=== PATIENT | male | born 1970 | race Caucasian/White ===

== ENCOUNTER 2020-11-29 15:06 | Inpatient (IN) ==
[2020-11-29] MEDS ORDERED: 0.9 % Sodium Chloride 1,000 ML IVC ONE (16:32)
[2020-11-29 17:07] LABS: Basophils % 0.5 %
[2020-11-29 17:08] LABS: Basophils # 0.1 K/mcL (0.0-0.2); Eosinophils # 0.2 K/mcL (0.0-0.6); Eosinophils % 1.3 %; Hematocrit 28.1 % (37.5-50.1); Hemoglobin 8.2 g/dL (12.9-16.9); Immature Granulocytes % 1.4 % (0-4); Lymphocytes # 1.7 K/mcL (0.6-4.6); Lymphocytes % 11.5 %; Mean Corpuscular HGB Conc 29.2 g/dL (31.6-35.5); Mean Corpuscular Hemoglobin 23.1 pg (28.0-33.3); Mean Corpuscular Volume 79.2 fL (83.0-100.0); Mean Platelet Volume 8.7 fL (9.4-12.4); Monocytes # 1.6 K/mcL (0.0-1.3); Monocytes % 10.8 %; Neutrophils # 10.9 K/mcL (1.6-8.9); Platelet Count 537 K/mcL (140-400); Red Blood Count 3.55 M/mcL (4.19-5.50); Red Cell Distribution Width 15.8 % (11.5-14.5); Segmented Neutrophils % 74.5 %; White Blood Count 14.6 K/mcL (4.3-11.1)
[2020-11-29 17:16] LABS: Hypochromasia Present (Not Present); Platelet Estimate Increased (Normal)
[2020-11-29 17:29] LABS: Alanine Aminotransferase 12 Units/L (7-52); Albumin 2.9 g/dL (3.5-5.7); Albumin/Globulin Ratio 0.6 (1.1-2.2); Alkaline Phosphatase 84 Units/L (34-104); Aspartate Amino Transferase 12 Units/L (13-39); BUN/Creatinine Ratio 15 (6-26); Bilirubin,Total 0.4 mg/dL (0.3-1.0); Blood Urea Nitrogen 11 mg/dL (6-20); Calcium 8.8 mg/dL (8.6-10.3); Carbon Dioxide 27 mEq/L (23-29); Chloride 100 mEq/L (98-107); Globulin 4.5 g/dL (2.4-3.5); Glucose 143 mg/dL (70-105); Osmolality,Calculated 286 (280-300); Potassium 3.9 mEq/L (3.5-5.1); Sodium 137 mEq/L (136-145); Total Protein 7.4 g/dL (6.4-8.9); eGFR For African Americans > 60 (> 60); eGFR For Non-African Americans > 60 (> 60)
[2020-11-29] MEDS ORDERED: Isovue-370 500 ML BOTTLE IVP ONE (18:13)
[2020-11-29] MEDS ORDERED: Gadolinium Contrast Agent (WT Based) IV PRN (18:13)
[2020-11-29] MEDS ORDERED: Lidocaine 4% CREAM (LMX) 5 GM TP PRN (18:22)
[2020-11-29] MEDS ORDERED: GADOBUTROL 30 MMOL/30 ML VIAL IVP ONE (18:54)
[2020-11-29] MEDS ORDERED: Naloxone 0.4 MG/ML INJ IVP PRN (19:00)
[2020-11-29] MEDS: polyethylene glycoL 3350 17 GM POWD.PACK PO SCH (21:17)
[2020-11-29 21:22] LABS: Iron 23 mcg/dL (65-175)
[2020-11-29 21:40] LABS: Ferritin 741 ng/mL (20-250)
[2020-11-29 21:47] LABS: Folate 3.7 ng/mL (3.0-16.0)
[2020-11-30 07:19] LABS: Mean Platelet Volume 8.9 fL (9.4-12.4); Red Cell Distribution Width 15.9 % (11.5-14.5)
[2020-11-30 07:20] LABS: Basophils # 0.1 K/mcL (0.0-0.2); Basophils % 0.6 %; Eosinophils # 0.3 K/mcL (0.0-0.6); Eosinophils % 1.8 %; Hemoglobin 7.4 g/dL (12.9-16.9); Immature Granulocytes % 1.6 % (0-4); Lymphocytes # 2.2 K/mcL (0.6-4.6); Lymphocytes % 14.7 %; Mean Corpuscular HGB Conc 29.6 g/dL (31.6-35.5); Mean Corpuscular Hemoglobin 23.4 pg (28.0-33.3); Mean Corpuscular Volume 79.1 fL (83.0-100.0); Monocytes # 1.6 K/mcL (0.0-1.3); Monocytes % 10.6 %; Neutrophils # 10.5 K/mcL (1.6-8.9); Platelet Count 529 K/mcL (140-400); Red Blood Count 3.16 M/mcL (4.19-5.50); Segmented Neutrophils % 70.7 %; White Blood Count 14.8 K/mcL (4.3-11.1)
[2020-11-30 07:21] LABS: INR 1.5; Prothrombin Time 16.2 Seconds (9.4-12.1)
[2020-11-30 07:39] LABS: BUN/Creatinine Ratio 10 (6-26); Blood Urea Nitrogen 7 mg/dL (6-20); Calcium 8.4 mg/dL (8.6-10.3); Carbon Dioxide 23 mEq/L (23-29); Chloride 101 mEq/L (98-107); Glucose 151 mg/dL (70-105); Osmolality,Calculated 281 (280-300); Potassium 3.6 mEq/L (3.5-5.1); Sodium 135 mEq/L (136-145); eGFR For African Americans > 60 (> 60); eGFR For Non-African Americans > 60 (> 60)
[2020-11-30] MEDS: polyethylene glycoL 3350 17 GM POWD.PACK PO SCH (08:25)
[2020-11-30] MEDS: levoFLOXacin 750 MG/150 ML 750 MG/150 ML BAG IVPB SCH (08:25)
[2020-11-30] MEDS ORDERED: Tuberculin Skin Test (PPD) 5 UNIT/0.1 ML VIAL ID ONE (09:06)
[2020-11-30] MEDS: Melatonin 3 MG TABLET PO PRN (20:31)
[2020-12-01 01:45] LABS: Basophils # 0.1 K/mcL (0.0-0.2); Basophils % 0.5 %; Eosinophils # 0.3 K/mcL (0.0-0.6); Eosinophils % 2.2 %; Hematocrit 26.1 % (37.5-50.1); Hemoglobin 7.6 g/dL (12.9-16.9); Immature Granulocytes % 2.8 % (0-4); Lymphocytes # 2.1 K/mcL (0.6-4.6); Lymphocytes % 15.6 %; Mean Corpuscular HGB Conc 29.1 g/dL (31.6-35.5); Mean Corpuscular Hemoglobin 23.2 pg (28.0-33.3); Mean Corpuscular Volume 79.6 fL (83.0-100.0); Mean Platelet Volume 8.8 fL (9.4-12.4); Monocytes # 1.1 K/mcL (0.0-1.3); Monocytes % 8.5 %; Neutrophils # 9.3 K/mcL (1.6-8.9); Platelet Count 551 K/mcL (140-400); Red Blood Count 3.28 M/mcL (4.19-5.50); Red Cell Distribution Width 15.9 % (11.5-14.5); Segmented Neutrophils % 70.4 %; White Blood Count 13.3 K/mcL (4.3-11.1)
[2020-12-01 02:10] LABS: Alanine Aminotransferase 14 Units/L (7-52); Albumin 2.7 g/dL (3.5-5.7); Albumin/Globulin Ratio 0.6 (1.1-2.2); Alkaline Phosphatase 74 Units/L (34-104); Aspartate Amino Transferase 19 Units/L (13-39); BUN/Creatinine Ratio 14 (6-26); Bilirubin,Indirect 0.2 mg/dL (0.0-1.0); Bilirubin,Total 0.2 mg/dL (0.3-1.0); Blood Urea Nitrogen 10 mg/dL (6-20); Calcium 8.5 mg/dL (8.6-10.3); Carbon Dioxide 25 mEq/L (23-29); Chloride 102 mEq/L (98-107); Globulin 4.3 g/dL (2.4-3.5); Glucose 181 mg/dL (70-105); Osmolality,Calculated 288 (280-300); Potassium 3.6 mEq/L (3.5-5.1); Sodium 137 mEq/L (136-145); eGFR For African Americans > 60 (> 60); eGFR For Non-African Americans > 60 (> 60)
[2020-12-01] MEDS: polyethylene glycoL 3350 17 GM POWD.PACK PO SCH (09:49)
[2020-12-01] MEDS: levoFLOXacin 750 MG/150 ML 750 MG/150 ML BAG IVPB SCH (09:51)
[2020-12-01] MEDS: Iron Sucrose Complex 250 MG in 0.9 % Sodium Chloride 250 ML IVPB SCH (13:57)
[2020-12-01 22:44] LABS: Acinetobacter baumannii by PCR Not Detected (Not Detect); Candida albicans by PCR Not Detected (Not Detect); Candida glabrata by PCR Not Detected (Not Detect); Candida krusei by PCR Not Detected (Not Detect); Candida parapsilosis by PCR Not Detected (Not Detect); Candida tropicalis by PCR Not Detected (Not Detect); Enterobacter cloacae Cmplx PCR Not Detected (Not Detect); Enterobacteriaceae by PCR Not Detected (Not Detect); Enterococcus by PCR Not Detected (Not Detect); Escherichia coli by PCR Not Detected (Not Detect); Klebsiella oxytoca by PCR Not Detected (Not Detect); Klebsiella pneumoniae by PCR Not Detected (Not Detect); Proteus by PCR Not Detected (Not Detect); Pseudomonas aeruginosa by PCR Not Detected (Not Detect); Serratia marcescens by PCR Not Detected (Not Detect); Staphylococcus aureus by PCR Not Detected (Not Detect); Staphylococcus by PCR DETECTED (Not Detect); Streptococcus agalactiae(B)PCR Not Detected (Not Detect); Streptococcus by PCR Not Detected (Not Detect); Streptococcus pneumoniae PCR Not Detected (Not Detect); Streptococcus pyogenes (A) PCR Not Detected (Not Detect); mecA Methicillin-Resist Gene DETECTED (Not Detect); vanA/B Vancomycin-Resist Genes Not Detected (Not Detect)
[2020-12-01] MEDS ORDERED: *HR* LORazepam 2 MG/ML VIAL IVP ONE (23:40)
[2020-12-02] MEDS ORDERED: *HR* LORazepam 2 MG/ML VIAL IVP ONE ×2 (02:42→20:49)
[2020-12-02 04:32] LABS: Nucleated Red Blood Cells 0.2 /100 WBC (0)
[2020-12-02 04:34] LABS: Basophils # 0.1 K/mcL (0.0-0.2); Basophils % 0.5 %; Eosinophils # 0.4 K/mcL (0.0-0.6); Eosinophils % 2.7 %; Hematocrit 25.9 % (37.5-50.1); Hemoglobin 7.7 g/dL (12.9-16.9); Immature Granulocytes % 4.3 % (0-4); Lymphocytes # 1.9 K/mcL (0.6-4.6); Lymphocytes % 14.9 %; Mean Corpuscular HGB Conc 29.7 g/dL (31.6-35.5); Mean Corpuscular Hemoglobin 23.6 pg (28.0-33.3); Mean Corpuscular Volume 79.4 fL (83.0-100.0); Mean Platelet Volume 8.7 fL (9.4-12.4); Monocytes # 1.2 K/mcL (0.0-1.3); Monocytes % 9.5 %; Neutrophils # 8.8 K/mcL (1.6-8.9); Platelet Count 601 K/mcL (140-400); Red Blood Count 3.26 M/mcL (4.19-5.50); Segmented Neutrophils % 68.1 %; White Blood Count 12.9 K/mcL (4.3-11.1)
[2020-12-02 04:50] LABS: BUN/Creatinine Ratio 17 (6-26); Blood Urea Nitrogen 12 mg/dL (6-20); Calcium 8.5 mg/dL (8.6-10.3); Carbon Dioxide 24 mEq/L (23-29); Chloride 102 mEq/L (98-107); Glucose 124 mg/dL (70-105); Magnesium 1.8 mg/dL (1.6-2.6); Osmolality,Calculated 281 (280-300); Potassium 3.8 mEq/L (3.5-5.1); Sodium 135 mEq/L (136-145); eGFR For African Americans > 60 (> 60); eGFR For Non-African Americans > 60 (> 60)
[2020-12-02 04:51] LABS: Anisocytosis 1+ (Not Present); Platelet Estimate Increased (Normal); Polychromasia 1+ (Not Present)
[2020-12-02] MEDS ORDERED: 0.9 % Sodium Chloride 500 ML ONE (09:50)
[2020-12-02] MEDS ORDERED: *HR* FentaNYL (PF) 100 MCG/2 ML VIAL ONE (09:50)
[2020-12-02] MEDS ORDERED: *HR* Midazolam HCl 2 MG/2 ML VIAL ONE (09:50)
[2020-12-02 10:29] LABS: Estimated Average Glucose 171 mg/dl; Hemoglobin A1C 7.6 %
[2020-12-02] MEDS: levoFLOXacin 750 MG/150 ML 750 MG/150 ML BAG IVPB SCH (12:06)
[2020-12-02] MEDS: Vancomycin 1,500 MG/265 ML IV.SOLN IVPB SCH ×2 (12:06→20:29)
[2020-12-02] MEDS: polyethylene glycoL 3350 17 GM POWD.PACK PO SCH (12:07)
[2020-12-02] MEDS: Iron Sucrose Complex 250 MG in 0.9 % Sodium Chloride 250 ML IVPB SCH (13:43)
[2020-12-03] MEDS: Acetaminophen 325 MG TABLET PO PRN ×2 (04:09→23:49)
[2020-12-03 04:41] LABS: Basophils # 0.1 K/mcL (0.0-0.2); Basophils % 0.6 %; Eosinophils # 0.3 K/mcL (0.0-0.6); Eosinophils % 1.8 %; Hematocrit 26.2 % (37.5-50.1); Hemoglobin 7.7 g/dL (12.9-16.9); Immature Granulocytes % 4.2 % (0-4); Lymphocytes # 2.3 K/mcL (0.6-4.6); Lymphocytes % 15.2 %; Mean Corpuscular HGB Conc 29.4 g/dL (31.6-35.5); Mean Corpuscular Hemoglobin 23.4 pg (28.0-33.3); Mean Corpuscular Volume 79.6 fL (83.0-100.0); Mean Platelet Volume 8.6 fL (9.4-12.4); Monocytes # 1.7 K/mcL (0.0-1.3); Monocytes % 11.3 %; Neutrophils # 9.9 K/mcL (1.6-8.9); Nucleated Red Blood Cells 0.1 /100 WBC (0); Platelet Count 602 K/mcL (140-400); Red Blood Count 3.29 M/mcL (4.19-5.50); Red Cell Distribution Width 16.1 % (11.5-14.5); Segmented Neutrophils % 66.9 %; White Blood Count 14.9 K/mcL (4.3-11.1)
[2020-12-03 04:55] LABS: BUN/Creatinine Ratio 16 (6-26); Blood Urea Nitrogen 10 mg/dL (6-20); Calcium 8.6 mg/dL (8.6-10.3); Carbon Dioxide 23 mEq/L (23-29); Chloride 101 mEq/L (98-107); Glucose 147 mg/dL (70-105); Magnesium 1.8 mg/dL (1.6-2.6); Osmolality,Calculated 280 (280-300); Potassium 3.9 mEq/L (3.5-5.1); Sodium 134 mEq/L (136-145); eGFR For African Americans > 60 (> 60); eGFR For Non-African Americans > 60 (> 60)
[2020-12-03] MEDS: polyethylene glycoL 3350 17 GM POWD.PACK PO SCH (09:19)
[2020-12-03] MEDS: levoFLOXacin 750 MG TABLET PO SCH (09:19)
[2020-12-03] MEDS: Vancomycin 1,500 MG/265 ML IV.SOLN IVPB SCH ×2 (09:19→20:49)
[2020-12-03] MEDS: Iron Sucrose Complex 250 MG in 0.9 % Sodium Chloride 250 ML IVPB SCH (11:44)
[2020-12-03] MEDS ORDERED: Perflutren Lipid Microsphere 1.3 ML in 0.9 % Sodium Chloride 8.7 ML IVP PRN (13:06)
[2020-12-03] MEDS: Melatonin 3 MG TABLET PO PRN (21:38)
[2020-12-03] MEDS: *HR* LORazepam 0.5 MG TABLET PO PRN (21:38)
[2020-12-03] MEDS ORDERED: Vancomycin 500 MG in 0.9 % Sodium Chloride Mini Bag 100 ML IVPB ONE (22:00)
[2020-12-03 22:32] LABS: % Iron Saturation 7 % (20-55); Transferrin 137 mg/dL (203-362)
[2020-12-04 00:41] LABS: QuantiFERON Mitogen minus NIL 0.42 IU/mL
[2020-12-04 07:18] LABS: QuantiFERON NIL 0.01 IU/mL; QuantiFERON-TB Gold In-Tube INDETERMINATE (Negative)
[2020-12-04 08:19] LABS: Basophils % 0.6 %
[2020-12-04 08:20] LABS: Basophils # 0.1 K/mcL (0.0-0.2); Eosinophils # 0.3 K/mcL (0.0-0.6); Eosinophils % 1.8 %; Hematocrit 25.9 % (37.5-50.1); Hemoglobin 7.7 g/dL (12.9-16.9); Immature Granulocytes % 4.1 % (0-4); Lymphocytes % 12.6 %; Mean Corpuscular HGB Conc 29.7 g/dL (31.6-35.5); Mean Corpuscular Hemoglobin 23.9 pg (28.0-33.3); Mean Corpuscular Volume 80.4 fL (83.0-100.0); Mean Platelet Volume 8.8 fL (9.4-12.4); Monocytes # 1.5 K/mcL (0.0-1.3); Monocytes % 9.7 %; Neutrophils # 11.2 K/mcL (1.6-8.9); Platelet Count 576 K/mcL (140-400); Red Blood Count 3.22 M/mcL (4.19-5.50); Red Cell Distribution Width 16.3 % (11.5-14.5); Segmented Neutrophils % 71.2 %; White Blood Count 15.7 K/mcL (4.3-11.1)
[2020-12-04 08:36] LABS: BUN/Creatinine Ratio 17 (6-26); Blood Urea Nitrogen 11 mg/dL (6-20); Calcium 8.8 mg/dL (8.6-10.3); Carbon Dioxide 24 mEq/L (23-29); Chloride 102 mEq/L (98-107); Glucose 163 mg/dL (70-105); Magnesium 1.9 mg/dL (1.6-2.6); Osmolality,Calculated 283 (280-300); Potassium 3.8 mEq/L (3.5-5.1); Sodium 135 mEq/L (136-145); eGFR For African Americans > 60 (> 60); eGFR For Non-African Americans > 60 (> 60)
[2020-12-04 08:37] LABS: Anisocytosis 1+ (Not Present); Hypochromasia Present (Not Present)
[2020-12-04] MEDS: levoFLOXacin 750 MG TABLET PO SCH (08:51)
[2020-12-04] MEDS: polyethylene glycoL 3350 17 GM POWD.PACK PO SCH (08:51)
[2020-12-04] MEDS: Vancomycin 1,750 MG/517.5 ML IV.SOLN IVPB SCH ×2 (11:03→21:26)
[2020-12-04 12:46] LABS: Adenovirus Not Detected (Not Detect); Bordetella Pertussis Not Detected (Not Detect); Chlamydophila pneumoniae Not Detected (Not Detect); Coronavirus 229E Not Detected (Not Detect); Coronavirus HKU1 Not Detected (Not Detect); Coronavirus NL63 Not Detected (Not Detect); Coronavirus OC43 Not Detected (Not Detect); Human Metapneumovirus Not Detected (Not Detect); Human Rhinovirus/Enterovirus Not Detected (Not Detect); Influenza A Subtype 2009 H1 Not Detected (Not Detect); Influenza B Not Detected (Not Detect); Mycoplasma pneumoniae Not Detected (Not Detect); Parainfluenza Virus 1 Not Detected (Not Detect); Parainfluenza Virus 2 Not Detected (Not Detect); Parainfluenza Virus 3 Not Detected (Not Detect); Parainfluenza Virus 4 Not Detected (Not Detect); Respiratory Syncytial Virus Not Detected (Not Detect); SARS-CoV-2 Not Detected (Not Detect)
[2020-12-04] MEDS: Piperacillin/Tazobactam 3.375 GM in 0.9 % Sodium Chloride Mini Bag 100 ML IVPB SCH ×2 (17:35→23:04)
[2020-12-04 17:37] LABS: Bacteria,Urine Few per hpf (None-Few); Bilirubin,Urine Negative (Negative); Blood,Urine Trace (Negative); Clarity,Urine Turbid (Clear); Color,Urine Yellow (Yellow); Glucose,Urine (UA) 200 mg/dL (Normal); Ketones,Urine Negative (Negative); Leukocyte Esterase,Urine Negative (Negative); Mucus,Urine Few per lpf (None-Few); Nitrite,Urine Negative (Negative); Protein,Urine 30 mg/dL (Neg-Trace); RBC,Urine 0-3 per hpf (0-3); Squamous Epithelial Cell,Urine Few per hpf (None-Few)
[2020-12-04] MEDS: *HR* LORazepam 0.5 MG TABLET PO PRN (21:25)
[2020-12-04] MEDS: Melatonin 3 MG TABLET PO PRN (22:30)
[2020-12-05 05:48] LABS: Basophils % 0.6 %; Red Cell Distribution Width 16.7 % (11.5-14.5)
[2020-12-05 05:50] LABS: Basophils # 0.1 K/mcL (0.0-0.2); Eosinophils # 0.3 K/mcL (0.0-0.6); Eosinophils % 1.9 %; Hematocrit 25.4 % (37.5-50.1); Hemoglobin 7.4 g/dL (12.9-16.9); Immature Granulocytes % 2.9 % (0-4); Lymphocytes % 12.4 %; Mean Corpuscular HGB Conc 29.1 g/dL (31.6-35.5); Mean Corpuscular Hemoglobin 23.6 pg (28.0-33.3); Mean Corpuscular Volume 81.2 fL (83.0-100.0); Monocytes # 1.3 K/mcL (0.0-1.3); Monocytes % 8.4 %; Neutrophils # 11.8 K/mcL (1.6-8.9); Platelet Count 552 K/mcL (140-400); Red Blood Count 3.13 M/mcL (4.19-5.50); Segmented Neutrophils % 73.8 %
[2020-12-05 06:09] LABS: BUN/Creatinine Ratio 14 (6-26); Blood Urea Nitrogen 10 mg/dL (6-20); Calcium 8.3 mg/dL (8.6-10.3); Carbon Dioxide 24 mEq/L (23-29); Chloride 102 mEq/L (98-107); Glucose 137 mg/dL (70-105); Magnesium 1.9 mg/dL (1.6-2.6); Osmolality,Calculated 283 (280-300); Potassium 3.7 mEq/L (3.5-5.1); Sodium 136 mEq/L (136-145); eGFR For African Americans > 60 (> 60); eGFR For Non-African Americans > 60 (> 60)
[2020-12-05 06:12] LABS: Hypochromasia Present (Not Present); Polychromasia 1+ (Not Present)
[2020-12-05] MEDS: Piperacillin/Tazobactam 3.375 GM in 0.9 % Sodium Chloride Mini Bag 100 ML IVPB SCH ×3 (08:47→23:06)
[2020-12-05] MEDS: polyethylene glycoL 3350 17 GM POWD.PACK PO SCH (09:29)
[2020-12-05] MEDS: Vancomycin 1,750 MG/517.5 ML IV.SOLN IVPB SCH (10:42)
[2020-12-05] MEDS: Vancomycin 2,000 MG/520 ML IV.SOLN IVPB SCH ×2 (11:23→23:06)
[2020-12-05] MEDS: Melatonin 3 MG TABLET PO PRN (20:32)
[2020-12-05] MEDS: Acetaminophen 325 MG TABLET PO PRN (20:32)
[2020-12-05] MEDS: *HR* LORazepam 0.5 MG TABLET PO PRN (20:32)
[2020-12-06 04:46] LABS: Basophils % 0.6 %; Hemoglobin 7.4 g/dL (12.9-16.9); Mean Platelet Volume 8.8 fL (9.4-12.4)
[2020-12-06 04:48] LABS: Basophils # 0.1 K/mcL (0.0-0.2); Eosinophils # 0.4 K/mcL (0.0-0.6); Eosinophils % 2.5 %; Hematocrit 26.1 % (37.5-50.1); Immature Granulocytes % 2.3 % (0-4); Lymphocytes # 1.8 K/mcL (0.6-4.6); Lymphocytes % 12.5 %; Mean Corpuscular HGB Conc 28.4 g/dL (31.6-35.5); Mean Corpuscular Hemoglobin 23.1 pg (28.0-33.3); Mean Corpuscular Volume 81.6 fL (83.0-100.0); Monocytes # 1.2 K/mcL (0.0-1.3); Monocytes % 8.3 %; Neutrophils # 10.5 K/mcL (1.6-8.9); Platelet Count 579 K/mcL (140-400); Red Cell Distribution Width 16.6 % (11.5-14.5); Segmented Neutrophils % 73.8 %; White Blood Count 14.2 K/mcL (4.3-11.1)
[2020-12-06 04:57] LABS: BUN/Creatinine Ratio 14 (6-26); Blood Urea Nitrogen 10 mg/dL (6-20); Calcium 8.6 mg/dL (8.6-10.3); Carbon Dioxide 24 mEq/L (23-29); Chloride 101 mEq/L (98-107); Glucose 164 mg/dL (70-105); Osmolality,Calculated 283 (280-300); Potassium 3.6 mEq/L (3.5-5.1); Sodium 135 mEq/L (136-145); eGFR For African Americans > 60 (> 60); eGFR For Non-African Americans > 60 (> 60)
[2020-12-06 06:12] LABS: Hypochromasia Present (Not Present); Microcytosis Present (Not Present)
[2020-12-06 06:13] LABS: Platelet Estimate Increased (Normal)
[2020-12-06] MEDS: Piperacillin/Tazobactam 3.375 GM in 0.9 % Sodium Chloride Mini Bag 100 ML IVPB SCH ×2 (08:07→16:29)
[2020-12-06] MEDS: polyethylene glycoL 3350 17 GM POWD.PACK PO SCH (08:08)
[2020-12-06] MEDS ORDERED: 0.9 % Sodium Chloride 500 ML IVC SCH (08:15)
[2020-12-06] MEDS: Vancomycin 2,000 MG/520 ML IV.SOLN IVPB SCH (11:16)
[2020-12-06] MEDS ORDERED: Sulfamethoxazole/Trimeth DS 1 EACH TABLET PO SCH (17:33)
[2020-12-06 19:33] VITALS: BP 111/58; PULSE 111; TEMP 100.5; O2SAT 95
== END 2020-12-06 20:45 | disposition home or self-care (01) | DRG 180 ==
LOC: EMEROOARM 15:06 → 3ANU 15:06 → SUATTDRO 19:00 → 3ANU 20:24
PROVIDERS: ADMIT Family Medicine; ATTEND Internal Medicine

== ENCOUNTER 2021-06-20 10:04 | Inpatient (IN) ==
[2021-06-20] MEDS ORDERED: 0.9 % Sodium Chloride 1,000 ML IVC ONE (10:33)
[2021-06-20] MEDS ORDERED: Naloxone 0.4 MG/ML INJ IVP PRN (10:47)
[2021-06-20] MEDS ORDERED: 0.9 % Sodium Chloride 1,000 ML IVC SCH (11:00)
[2021-06-20] MEDS ORDERED: *HR* LORazepam 1 MG TABLET PO PRN (14:14)
[2021-06-20 15:14] LABS: Basophils # 0.1 K/mcL (0.0-0.2); Basophils % 0.3 %; Hemoglobin 8.7 g/dL (12.9-16.9); Immature Granulocytes % 1.5 % (0-4); Lymphocytes # 2.1 K/mcL (0.6-4.6); Lymphocytes % 11.7 %; Mean Corpuscular HGB Conc 33.5 g/dL (31.6-35.5); Mean Corpuscular Hemoglobin 32.8 pg (28.0-33.3); Mean Platelet Volume 9.1 fL (9.4-12.4); Monocytes # 1.6 K/mcL (0.0-1.3); Monocytes % 9.2 %; Neutrophils # 13.5 K/mcL (1.6-8.9); Platelet Count 324 K/mcL (140-400); Red Blood Count 2.65 M/mcL (4.19-5.50); Red Cell Distribution Width 15.9 % (11.5-14.5); Segmented Neutrophils % 77.3 %; White Blood Count 17.5 K/mcL (4.3-11.1)
[2021-06-20 15:15] LABS: Mean Corpuscular Volume 98.1 fL (83.0-100.0)
[2021-06-20 15:19] LABS: Bacteria,Urine Few per hpf (None-Few); Mucus,Urine Few per lpf (None-Few); RBC,Urine 0-3 per hpf (0-3); Transitional Epi Cells,Urine Few per hpf (None-Few); WBC,Urine 0-3 per hpf (0-3)
[2021-06-20 15:36] LABS: Bilirubin,Urine Negative (Negative); Blood,Urine Negative (Negative); Clarity,Urine Clear (Clear); Color,Urine Colorless (Yellow); Glucose,Urine (UA) 300 mg/dL (Normal); Ketones,Urine Negative (Negative); Leukocyte Esterase,Urine Negative (Negative); Nitrite,Urine Negative (Negative); PH,Urine 6.5 pH Units (5.0-8.0); Protein,Urine 50 mg/dL (Neg-Trace); Squamous Epithelial Cell,Urine Few per hpf (None-Few); Urobilinogen,Urine Normal (Normal)
[2021-06-20 15:41] LABS: Protein/Creatinine Ratio,Urine 1.45 mg/mg (0.00-0.20); Sodium, Urine 53.2 mEq/L
[2021-06-20] MEDS: Nicotine 21 MG PATCH.TD24 TD SCH (16:04)
[2021-06-20] MEDS: carvediloL 6.25 MG TABLET PO SCH (16:04)
[2021-06-20 16:43] LABS: Potassium 3.8 mEq/L (3.5-5.1); Uric Acid 5.5 mg/dL (2.3-7.6)
[2021-06-20] MEDS: levETIRAcetam 250 MG TABLET PO SCH (21:50)
[2021-06-20] MEDS: *HR* OxyCODONE Immed Rel 5 MG TABLET PO PRN (21:50)
[2021-06-21 05:22] LABS: Basophils # 0.1 K/mcL (0.0-0.2); Basophils % 0.6 %; Eosinophils # 0.2 K/mcL (0.0-0.6); Hematocrit 25.2 % (37.5-50.1); Hemoglobin 8.4 g/dL (12.9-16.9); Immature Granulocytes % 1.9 % (0-4); Lymphocytes # 3.5 K/mcL (0.6-4.6); Lymphocytes % 21.4 %; Mean Corpuscular HGB Conc 33.3 g/dL (31.6-35.5); Mean Corpuscular Hemoglobin 32.9 pg (28.0-33.3); Mean Corpuscular Volume 98.8 fL (83.0-100.0); Mean Platelet Volume 9.2 fL (9.4-12.4); Monocytes % 12.5 %; Neutrophils # 10.2 K/mcL (1.6-8.9); Platelet Count 310 K/mcL (140-400); Red Blood Count 2.55 M/mcL (4.19-5.50); Segmented Neutrophils % 62.6 %; White Blood Count 16.2 K/mcL (4.3-11.1)
[2021-06-21] MEDS: *HR* Enoxaparin 40 MG/0.4 ML SYRINGE SQ SCH (05:29)
[2021-06-21] MEDS: *HR* OxyCODONE Immed Rel 5 MG TABLET PO PRN ×2 (05:29→21:30)
[2021-06-21 05:41] LABS: Calcium 8.3 mg/dL (8.6-10.3); Potassium 4.3 mEq/L (3.5-5.1)
[2021-06-21] MEDS: carvediloL 6.25 MG TABLET PO SCH ×2 (08:40→17:30)
[2021-06-21] MEDS: NIFEdipine XL (24 HR) 30 MG TAB.ER.24 PO SCH (08:40)
[2021-06-21] MEDS: dexAMETHasone 4 MG TABLET PO SCH (08:40)
[2021-06-21] MEDS: Nicotine 21 MG PATCH.TD24 TD SCH ×2 (08:41→23:06)
[2021-06-21] MEDS: levETIRAcetam 250 MG TABLET PO SCH ×2 (08:41→21:31)
[2021-06-21] MEDS ORDERED: 0.9 % Sodium Chloride 1,000 ML IVC SCH (10:00)
[2021-06-21] MEDS: traZODone 50 MG TABLET PO PRN (21:31)
[2021-06-22 02:32] LABS: Immature Granulocytes % 2.6 % (0-4); Mean Corpuscular Hemoglobin 32.4 pg (28.0-33.3); Red Blood Count 2.47 M/mcL (4.19-5.50)
[2021-06-22 02:33] LABS: Basophils # 0.1 K/mcL (0.0-0.2); Basophils % 0.4 %; Eosinophils # 0.1 K/mcL (0.0-0.6); Eosinophils % 0.5 %; Hematocrit 24.8 % (37.5-50.1); Immature Platelets 3.2 % (1.1-6.1); Lymphocytes # 1.9 K/mcL (0.6-4.6); Lymphocytes % 14.3 %; Mean Corpuscular HGB Conc 32.3 g/dL (31.6-35.5); Mean Corpuscular Volume 100.4 fL (83.0-100.0); Mean Platelet Volume 10.2 fL (9.4-12.4); Monocytes # 1.2 K/mcL (0.0-1.3); Monocytes % 9.1 %; Neutrophils # 9.7 K/mcL (1.6-8.9); Platelet Count 233 K/mcL (140-400); Segmented Neutrophils % 73.1 %; White Blood Count 13.3 K/mcL (4.3-11.1)
[2021-06-22 02:52] LABS: Calcium 8.1 mg/dL (8.6-10.3); Potassium 4.7 mEq/L (3.5-5.1)
[2021-06-22] MEDS: *HR* OxyCODONE Immed Rel 5 MG TABLET PO PRN (05:55)
[2021-06-22] MEDS: *HR* Enoxaparin 40 MG/0.4 ML SYRINGE SQ SCH (05:55)
[2021-06-22] MEDS: carvediloL 6.25 MG TABLET PO SCH ×2 (07:17→15:40)
[2021-06-22] MEDS: levETIRAcetam 250 MG TABLET PO SCH ×2 (07:17→19:44)
[2021-06-22] MEDS: Nicotine 21 MG PATCH.TD24 TD SCH ×2 (07:18→07:21)
[2021-06-22] MEDS: NIFEdipine XL (24 HR) 30 MG TAB.ER.24 PO SCH (07:18)
[2021-06-22] MEDS: 0.9 % Sodium Chloride 1,000 ML IVC SCH ×2 (09:48→19:46)
[2021-06-22 19:08] LABS: Bilirubin,Urine Negative (Negative); Blood,Urine Negative (Negative); Clarity,Urine Clear (Clear); Color,Urine Colorless (Yellow); Glucose,Urine (UA) Normal (Normal); Ketones,Urine Negative (Negative); Leukocyte Esterase,Urine Negative (Negative); Nitrite,Urine Negative (Negative); PH,Urine 6.5 pH Units (5.0-8.0); Protein,Urine 30 mg/dL (Neg-Trace); Urobilinogen,Urine Normal (Normal); WBC,Urine 0-3 per hpf (0-3)
[2021-06-22] MEDS: traZODone 50 MG TABLET PO PRN (19:45)
[2021-06-23 01:21] LABS: Basophils # 0.1 K/mcL (0.0-0.2); Basophils % 0.9 %; Eosinophils # 0.4 K/mcL (0.0-0.6); Eosinophils % 2.7 %; Hematocrit 27.4 % (37.5-50.1); Hemoglobin 8.7 g/dL (12.9-16.9); Immature Granulocytes % 2.5 % (0-4); Lymphocytes # 3.1 K/mcL (0.6-4.6); Lymphocytes % 23.2 %; Mean Corpuscular HGB Conc 31.8 g/dL (31.6-35.5); Mean Corpuscular Hemoglobin 31.8 pg (28.0-33.3); Mean Platelet Volume 8.9 fL (9.4-12.4); Monocytes # 1.6 K/mcL (0.0-1.3); Monocytes % 12.1 %; Neutrophils # 7.8 K/mcL (1.6-8.9); Platelet Count 274 K/mcL (140-400); Red Blood Count 2.74 M/mcL (4.19-5.50); Red Cell Distribution Width 15.9 % (11.5-14.5); Segmented Neutrophils % 58.6 %; White Blood Count 13.4 K/mcL (4.3-11.1)
[2021-06-23 01:37] LABS: Calcium 8.3 mg/dL (8.6-10.3)
[2021-06-23 01:38] LABS: Complement C3 153 mg/dL (87-200)
[2021-06-23 04:42] VITALS: BP 152/106; PULSE 91; TEMP 98.7; O2SAT 95
[2021-06-23] MEDS: *HR* Enoxaparin 40 MG/0.4 ML SYRINGE SQ SCH (05:16)
[2021-06-23] MEDS: Nicotine 21 MG PATCH.TD24 TD SCH ×2 (09:12→09:21)
[2021-06-23] MEDS: NIFEdipine XL (24 HR) 30 MG TAB.ER.24 PO SCH (09:12)
[2021-06-23] MEDS: dexAMETHasone 4 MG TABLET PO SCH (09:12)
[2021-06-23] MEDS: carvediloL 6.25 MG TABLET PO SCH (09:12)
[2021-06-23] MEDS: levETIRAcetam 250 MG TABLET PO SCH (09:12)
== END 2021-06-23 09:37 | disposition left against medical advice (07) | DRG 469 ==
LOC: EMEROOARM 10:04 → 2ANU 10:04
PROVIDERS: ADMIT Internal Medicine; ATTEND Internal Medicine

== ENCOUNTER 2021-07-14 13:07 | Inpatient (IN) ==
[2021-07-14] MEDS ORDERED: 0.9 % Sodium Chloride 1,000 ML IVC ONE (13:55)
[2021-07-14 14:29] LABS: Basophils # 0.1 K/mcL (0.0-0.2); Basophils % 0.5 %; Eosinophils % 8.4 %; Hematocrit 26.9 % (37.5-50.1); Immature Granulocytes % 0.9 % (0-4); Lymphocytes # 1.8 K/mcL (0.6-4.6); Lymphocytes % 15.4 %; Mean Corpuscular HGB Conc 33.5 g/dL (31.6-35.5); Mean Corpuscular Hemoglobin 31.8 pg (28.0-33.3); Mean Corpuscular Volume 95.1 fL (83.0-100.0); Mean Platelet Volume 8.8 fL (9.4-12.4); Monocytes % 17.3 %; Neutrophils # 6.7 K/mcL (1.6-8.9); Platelet Count 331 K/mcL (140-400); Red Blood Count 2.83 M/mcL (4.19-5.50); Red Cell Distribution Width 13.9 % (11.5-14.5); Segmented Neutrophils % 57.5 %; White Blood Count 11.7 K/mcL (4.3-11.1)
[2021-07-14 14:49] LABS: Alanine Aminotransferase 14 Units/L (7-52); Albumin 3.4 g/dL (3.5-5.7); Albumin/Globulin Ratio 0.6 (1.1-2.2); Alkaline Phosphatase 87 Units/L (34-104); Aspartate Amino Transferase 16 Units/L (13-39); BUN/Creatinine Ratio 8 (6-26); Bilirubin,Total 0.4 mg/dL (0.3-1.0); Blood Urea Nitrogen 27 mg/dL (6-20); Calcium 9.2 mg/dL (8.6-10.3); Carbon Dioxide 23 mEq/L (23-29); Chloride 99 mEq/L (98-107); Globulin 5.4 g/dL (2.4-3.5); Glucose 166 mg/dL (70-105); Osmolality,Calculated 283 (280-300); Potassium 4.5 mEq/L (3.5-5.1); Sodium 132 mEq/L (136-145); Total Protein 8.8 g/dL (6.4-8.9); Troponin I < 0.03 ng/mL (< 0.04); eGFR For African Americans 24 (> 60); eGFR For Non-African Americans 20 (> 60)
[2021-07-14 15:02] LABS: Thyroid Stimulating Hormone 1.173 mcIU/mL (0.340-5.600)
[2021-07-14] MEDS ORDERED: 0.9 % Sodium Chloride 500 ML IVC ONE (15:47)
[2021-07-14] MEDS ORDERED: Ondansetron 4 MG/2 ML VIAL IVP PRN (16:39)
[2021-07-14] MEDS ORDERED: Naloxone 0.4 MG/ML INJ IVP PRN (16:39)
[2021-07-14] MEDS ORDERED: Acetaminophen 325 MG TABLET PO PRN (16:39)
[2021-07-14] MEDS ORDERED: *HR* LORazepam 1 MG TABLET PO PRN (16:41)
[2021-07-14] MEDS ORDERED: *HR* OxyCODONE Immed Rel 5 MG TABLET PO PRN (16:41)
[2021-07-14] MEDS ORDERED: dexAMETHasone 4 MG TABLET PO SCH (16:45)
[2021-07-14] MEDS: 0.9 % Sodium Chloride 1,000 ML IVC SCH (18:54)
[2021-07-14] MEDS: carvediloL 6.25 MG TABLET PO SCH (18:54)
[2021-07-14 19:13] LABS: Bilirubin,Urine Negative (Negative); Blood,Urine Negative (Negative); Clarity,Urine Clear (Clear); Color,Urine Light-Yellow (Yellow); Glucose,Urine (UA) Normal (Normal); Ketones,Urine Negative (Negative); Leukocyte Esterase,Urine Negative (Negative); Nitrite,Urine Negative (Negative); PH,Urine 6.5 pH Units (5.0-8.0); Protein,Urine 100 mg/dL (Neg-Trace); RBC,Urine 0-3 per hpf (0-3); Specific Gravity,Urine 1.009 (1.010-1.025); Urobilinogen,Urine Normal (Normal); WBC,Urine 0-3 per hpf (0-3)
[2021-07-14] MEDS: levETIRAcetam 250 MG TABLET PO SCH (21:23)
[2021-07-15] MEDS: 0.9 % Sodium Chloride 1,000 ML IVC SCH ×3 (03:21→18:02)
[2021-07-15 03:24] LABS: Hematocrit 24.5 % (37.5-50.1); Hemoglobin 7.8 g/dL (12.9-16.9); Mean Corpuscular HGB Conc 31.8 g/dL (31.6-35.5); Mean Corpuscular Hemoglobin 30.5 pg (28.0-33.3); Mean Corpuscular Volume 95.7 fL (83.0-100.0); Mean Platelet Volume 8.9 fL (9.4-12.4); Platelet Count 287 K/mcL (140-400); Red Blood Count 2.56 M/mcL (4.19-5.50); White Blood Count 9.1 K/mcL (4.3-11.1)
[2021-07-15 03:44] LABS: Calcium 8.5 mg/dL (8.6-10.3); Magnesium 1.7 mg/dL (1.6-2.6); Potassium 4.1 mEq/L (3.5-5.1)
[2021-07-15] MEDS: NIFEdipine XL (24 HR) 30 MG TAB.ER.24 PO SCH (10:16)
[2021-07-15] MEDS: levETIRAcetam 250 MG TABLET PO SCH ×2 (10:16→21:17)
[2021-07-15] MEDS: Nicotine 21 MG PATCH.TD24 TD SCH (10:16)
[2021-07-15] MEDS: carvediloL 6.25 MG TABLET PO SCH ×2 (10:19→18:03)
[2021-07-15] MEDS: Megestrol Acetate 400 MG/10 ML UDC PO SCH (13:21)
[2021-07-15] MEDS: *HR* Heparin 5,000 UNIT/ML VIAL SQ SCH ×2 (15:50→21:18)
[2021-07-16 01:28] LABS: Basophils # 0.1 K/mcL (0.0-0.2); Basophils % 0.5 %; Eosinophils # 0.7 K/mcL (0.0-0.6); Eosinophils % 7.5 %; Hemoglobin 7.7 g/dL (12.9-16.9); Immature Granulocytes % 0.8 % (0-4); Lymphocytes # 1.9 K/mcL (0.6-4.6); Lymphocytes % 19.2 %; Mean Corpuscular HGB Conc 32.1 g/dL (31.6-35.5); Mean Corpuscular Hemoglobin 31.3 pg (28.0-33.3); Mean Corpuscular Volume 97.6 fL (83.0-100.0); Mean Platelet Volume 8.9 fL (9.4-12.4); Monocytes # 1.7 K/mcL (0.0-1.3); Monocytes % 17.2 %; Neutrophils # 5.4 K/mcL (1.6-8.9); Platelet Count 269 K/mcL (140-400); Red Blood Count 2.46 M/mcL (4.19-5.50); Red Cell Distribution Width 13.8 % (11.5-14.5); Segmented Neutrophils % 54.8 %; White Blood Count 9.9 K/mcL (4.3-11.1)
[2021-07-16 01:52] LABS: % Iron Saturation 11 % (20-55); Alanine Aminotransferase 11 Units/L (7-52); Albumin 2.9 g/dL (3.5-5.7); Albumin/Globulin Ratio 0.6 (1.1-2.2); Alkaline Phosphatase 72 Units/L (34-104); Aspartate Amino Transferase 12 Units/L (13-39); BUN/Creatinine Ratio 9 (6-26); Bilirubin,Total 0.2 mg/dL (0.3-1.0); Blood Urea Nitrogen 27 mg/dL (6-20); Calcium 8.4 mg/dL (8.6-10.3); Carbon Dioxide 20 mEq/L (23-29); Chloride 109 mEq/L (98-107); Globulin 4.6 g/dL (2.4-3.5); Glucose 95 mg/dL (70-105); Iron 22 mcg/dL (65-175); Osmolality,Calculated 291 (280-300); Sodium 138 mEq/L (136-145); Total Protein 7.5 g/dL (6.4-8.9); Transferrin 141 mg/dL (203-362); eGFR For African Americans 28 (> 60); eGFR For Non-African Americans 23 (> 60)
[2021-07-16 02:12] LABS: Ferritin > 1500 ng/mL (20-250)
[2021-07-16] MEDS: 0.9 % Sodium Chloride 1,000 ML IVC SCH ×2 (04:05→12:24)
[2021-07-16] MEDS: *HR* Heparin 5,000 UNIT/ML VIAL SQ SCH ×3 (05:57→20:00)
[2021-07-16] MEDS: NIFEdipine XL (24 HR) 30 MG TAB.ER.24 PO SCH (07:58)
[2021-07-16] MEDS: Megestrol Acetate 400 MG/10 ML UDC PO SCH (07:58)
[2021-07-16] MEDS: levETIRAcetam 250 MG TABLET PO SCH ×2 (07:58→20:01)
[2021-07-16] MEDS: carvediloL 6.25 MG TABLET PO SCH ×2 (07:58→17:06)
[2021-07-16] MEDS: Nicotine 21 MG PATCH.TD24 TD SCH (07:58)
[2021-07-16] MEDS: Ringers Solution, Lactated 1,000 ML IVC SCH (13:42)
[2021-07-16] MEDS ORDERED: Ipratropium/Albuterol Neb 3 ML IH PRN (16:05)
[2021-07-16] MEDS: traZODone 50 MG TABLET PO PRN (20:01)
[2021-07-17] MEDS: Ringers Solution, Lactated 1,000 ML IVC SCH ×2 (03:31→16:49)
[2021-07-17] MEDS: *HR* Heparin 5,000 UNIT/ML VIAL SQ SCH ×3 (05:34→20:53)
[2021-07-17 06:49] LABS: Basophils % 0.4 %; Eosinophils # 0.7 K/mcL (0.0-0.6); Eosinophils % 7.6 %; Hematocrit 22.7 % (37.5-50.1); Hemoglobin 7.4 g/dL (12.9-16.9); Immature Granulocytes % 1.1 % (0-4); Lymphocytes # 1.8 K/mcL (0.6-4.6); Lymphocytes % 18.1 %; Mean Corpuscular HGB Conc 32.6 g/dL (31.6-35.5); Mean Corpuscular Hemoglobin 31.8 pg (28.0-33.3); Mean Corpuscular Volume 97.4 fL (83.0-100.0); Monocytes # 1.5 K/mcL (0.0-1.3); Monocytes % 15.7 %; Neutrophils # 5.6 K/mcL (1.6-8.9); Platelet Count 264 K/mcL (140-400); Red Blood Count 2.33 M/mcL (4.19-5.50); Red Cell Distribution Width 14.1 % (11.5-14.5); Segmented Neutrophils % 57.1 %; White Blood Count 9.8 K/mcL (4.3-11.1)
[2021-07-17 07:18] LABS: Calcium 8.4 mg/dL (8.6-10.3); Magnesium 1.4 mg/dL (1.6-2.6); Phosphorous 3.3 mg/dL (2.7-4.5); Potassium 3.5 mEq/L (3.5-5.1)
[2021-07-17] MEDS: NIFEdipine XL (24 HR) 30 MG TAB.ER.24 PO SCH (08:09)
[2021-07-17] MEDS: Iron Sucrose Complex 200 MG in 0.9 % Sodium Chloride 100 ML IVPB SCH (08:09)
[2021-07-17] MEDS: carvediloL 6.25 MG TABLET PO SCH ×2 (08:09→16:48)
[2021-07-17] MEDS: levETIRAcetam 250 MG TABLET PO SCH ×2 (08:09→20:53)
[2021-07-17] MEDS: Megestrol Acetate 400 MG/10 ML UDC PO SCH (08:10)
[2021-07-17] MEDS: Nicotine 21 MG PATCH.TD24 TD SCH (08:10)
[2021-07-17] MEDS ORDERED: Acetaminophen 325 MG TABLET PO PRN (12:53)
[2021-07-17] MEDS: Ipratropium/Albuterol Neb 3 ML IH SCH ×3 (16:10→23:31)
[2021-07-17] MEDS: traZODone 50 MG TABLET PO PRN (20:53)
[2021-07-18 01:26] LABS: Basophils % 0.4 %; Eosinophils # 0.6 K/mcL (0.0-0.6); Eosinophils % 5.8 %; Hematocrit 23.4 % (37.5-50.1); Hemoglobin 7.4 g/dL (12.9-16.9); Immature Granulocytes % 1.2 % (0-4); Lymphocytes # 1.6 K/mcL (0.6-4.6); Lymphocytes % 16.9 %; Mean Corpuscular HGB Conc 31.6 g/dL (31.6-35.5); Mean Corpuscular Hemoglobin 30.7 pg (28.0-33.3); Mean Corpuscular Volume 97.1 fL (83.0-100.0); Monocytes # 1.6 K/mcL (0.0-1.3); Monocytes % 17.3 %; Neutrophils # 5.5 K/mcL (1.6-8.9); Platelet Count 279 K/mcL (140-400); Red Blood Count 2.41 M/mcL (4.19-5.50); Red Cell Distribution Width 13.9 % (11.5-14.5); Segmented Neutrophils % 58.4 %; White Blood Count 9.5 K/mcL (4.3-11.1)
[2021-07-18 01:51] LABS: Calcium 8.3 mg/dL (8.6-10.3); Magnesium 1.8 mg/dL (1.6-2.6); Potassium 3.5 mEq/L (3.5-5.1)
[2021-07-18] MEDS: Ipratropium/Albuterol Neb 3 ML IH SCH ×4 (03:27→15:23)
[2021-07-18] MEDS: Ringers Solution, Lactated 1,000 ML IVC SCH (06:00)
[2021-07-18] MEDS: *HR* Heparin 5,000 UNIT/ML VIAL SQ SCH ×2 (06:01→15:16)
[2021-07-18 06:31] VITALS: PULSE 94
[2021-07-18 10:27] VITALS: BP 133/97; TEMP 99
[2021-07-18] MEDS: Nicotine 21 MG PATCH.TD24 TD SCH (10:27)
[2021-07-18] MEDS: carvediloL 6.25 MG TABLET PO SCH (10:28)
[2021-07-18] MEDS: NIFEdipine XL (24 HR) 30 MG TAB.ER.24 PO SCH (10:28)
[2021-07-18] MEDS: levETIRAcetam 250 MG TABLET PO SCH (10:29)
[2021-07-18] MEDS: Megestrol Acetate 400 MG/10 ML UDC PO SCH (10:32)
[2021-07-18] MEDS: Iron Sucrose Complex 200 MG in 0.9 % Sodium Chloride 100 ML IVPB SCH (10:32)
[2021-07-18 13:36] VITALS: O2SAT 95
== END 2021-07-18 16:00 | disposition home or self-care (01) | DRG 469 ==
LOC: EMEROOARM 13:07 → 2ANU 13:07 → SUATTDRO 17:11 → 2ANU 17:58
PROVIDERS: ADMIT Pharmacist; ATTEND Internal Medicine

== ENCOUNTER 2021-07-22 00:52 | Inpatient (IN) ==
[2021-07-22] MEDS ORDERED: Isovue-370 500 ML BOTTLE IVP ONE (01:37)
[2021-07-22] MEDS ORDERED: Ipratropium/Albuterol Neb 3 ML IH ONE (01:37)
[2021-07-22 01:46] LABS: Basophils # 0.1 K/mcL (0.0-0.2); Basophils % 0.4 %; Eosinophils # 0.7 K/mcL (0.0-0.6); Eosinophils % 5.1 %; Hematocrit 25.2 % (37.5-50.1); Hemoglobin 7.9 g/dL (12.9-16.9); Immature Granulocytes % 1.8 % (0-4); Lymphocytes # 1.9 K/mcL (0.6-4.6); Lymphocytes % 13.2 %; Mean Corpuscular HGB Conc 31.3 g/dL (31.6-35.5); Mean Corpuscular Hemoglobin 30.5 pg (28.0-33.3); Mean Corpuscular Volume 97.3 fL (83.0-100.0); Mean Platelet Volume 9.1 fL (9.4-12.4); Monocytes # 1.8 K/mcL (0.0-1.3); Monocytes % 12.5 %; Neutrophils # 9.5 K/mcL (1.6-8.9); Platelet Count 351 K/mcL (140-400); Red Blood Count 2.59 M/mcL (4.19-5.50); Red Cell Distribution Width 14.2 % (11.5-14.5); White Blood Count 14.2 K/mcL (4.3-11.1)
[2021-07-22 01:59] LABS: INR 1.2; Prothrombin Time 13.9 Seconds (9.4-12.1)
[2021-07-22 02:02] LABS: Activated Partial Thrombo Time 29.8 Seconds (26.0-36.0)
[2021-07-22 02:10] LABS: Alanine Aminotransferase 14 Units/L (7-52); Albumin/Globulin Ratio 0.6 (1.1-2.2); Alkaline Phosphatase 90 Units/L (34-104); Aspartate Amino Transferase 15 Units/L (13-39); BUN/Creatinine Ratio 9 (6-26); Bilirubin,Indirect 0.2 mg/dL (0.0-1.0); Bilirubin,Total 0.2 mg/dL (0.3-1.0); Blood Urea Nitrogen 24 mg/dL (6-20); Calcium 9.2 mg/dL (8.6-10.3); Carbon Dioxide 22 mEq/L (23-29); Chloride 103 mEq/L (98-107); Globulin 5.3 g/dL (2.4-3.5); Glucose 221 mg/dL (70-105); Osmolality,Calculated 293 (280-300); Potassium 3.7 mEq/L (3.5-5.1); Sodium 136 mEq/L (136-145); Total Protein 8.3 g/dL (6.4-8.9); Troponin I < 0.03 ng/mL (< 0.04); eGFR For African Americans 31 (> 60); eGFR For Non-African Americans 26 (> 60)
[2021-07-22 02:19] LABS: ABG Base Excess -2 mEq/L (-2 to 3); ABG HCO3 22 mEq/L (21-27); ABG Oxygen Saturation 98 % (95-98); ABG PCO2 36 mmHg (35-45); ABG PH 7.39 pH Units (7.32-7.45); ABG PO2 99 mmHg (85-104); ABG TCO2 23 mEq/L (20-26)
[2021-07-22] MEDS ORDERED: Ondansetron 4 MG/2 ML VIAL IVP PRN ×2 (02:37→07:48)
[2021-07-22 02:39] LABS: Influenza A PCR Negative (Negative); Influenza B PCR Negative (Negative); Resp. Syncytial Virus PCR Negative (Negative)
[2021-07-22 02:42] LABS: SARS-CoV-2 by PCR (In House) Negative (Negative)
[2021-07-22] MEDS ORDERED: Metoclopramide 10 MG/2 ML VIAL IVP ONE (03:32)
[2021-07-22] MEDS ORDERED: cefTRIAXone 1,000 MG in 0.9 % Sodium Chloride Mini Bag 100 ML IVPB ONE (04:05)
[2021-07-22] MEDS ORDERED: Azithromycin 500 MG in 0.9 % Sodium Chloride 250 ML IVPB ONE (04:05)
[2021-07-22] MEDS ORDERED: *HR* Heparin 5,000 UNIT/ML VIAL IVP ONE (05:52)
[2021-07-22] MEDS ORDERED: *HR* Heparin 5,000 UNIT/ML VIAL IVP PRN (05:52)
[2021-07-22] MEDS ORDERED: Mag Hydrox/Al Hydrox/Simeth 30 ML UDC PO PRN (07:48)
[2021-07-22] MEDS ORDERED: Naloxone 0.4 MG/ML INJ IVP PRN (07:48)
[2021-07-22] MEDS ORDERED: MOM Conc 10 ML UD.LIQ PO PRN (07:48)
[2021-07-22] MEDS ORDERED: *HR* OxyCODONE Immed Rel 5 MG TABLET PO PRN (07:48)
[2021-07-22] MEDS ORDERED: Vancomycin (wt based) 1,000 MG VIAL IVPB SCH (08:00)
[2021-07-22] MEDS ORDERED: Vancomycin 1,750 MG/517.5 ML IV.SOLN IVPB SCH (09:00)
[2021-07-22] MEDS: Heparin 25,000UNIT/250ML 1/2NS 25,000 UNIT/250 ML IV.SOLN IVC SCH (09:52)
[2021-07-22] MEDS: carvediloL 25 MG TABLET PO SCH ×2 (12:54→17:24)
[2021-07-22] MEDS: NIFEdipine XL (24 HR) 30 MG TAB.ER.24 PO SCH (12:54)
[2021-07-22] MEDS: levETIRAcetam 250 MG TABLET PO SCH (12:55)
[2021-07-22] MEDS: Cefepime HCl 2,000 MG in 0.9 % Sodium Chloride 10 ML IVP SCH (17:25)
[2021-07-22] MEDS: Acetaminophen 325 MG TABLET PO PRN (17:36)
[2021-07-22] MEDS ORDERED: MetroNIDAZOLE 500 MG/100 ML 500 MG/100 ML BAG IVPB SCH (18:30)
[2021-07-22] MEDS: traZODone 50 MG TABLET PO PRN (22:02)
[2021-07-22] MEDS: *HR* Heparin 5,000 UNIT/ML VIAL IVP PRN (22:02)
[2021-07-22] MEDS: *HR* HYDROcodone/Acet 5/325 mg TABLET PO PRN (22:02)
[2021-07-23 04:19] LABS: Hematocrit 24.1 % (37.5-50.1); Hemoglobin 7.5 g/dL (12.9-16.9); Mean Corpuscular HGB Conc 31.1 g/dL (31.6-35.5); Mean Corpuscular Hemoglobin 30.7 pg (28.0-33.3); Mean Corpuscular Volume 98.8 fL (83.0-100.0); Platelet Count 306 K/mcL (140-400); Red Blood Count 2.44 M/mcL (4.19-5.50); Red Cell Distribution Width 14.7 % (11.5-14.5); White Blood Count 16.1 K/mcL (4.3-11.1)
[2021-07-23] MEDS: Cefepime HCl 2,000 MG in 0.9 % Sodium Chloride 10 ML IVP SCH ×2 (04:20→16:52)
[2021-07-23] MEDS: Acetaminophen 325 MG TABLET PO PRN (04:20)
[2021-07-23] MEDS: Heparin 25,000UNIT/250ML 1/2NS 25,000 UNIT/250 ML IV.SOLN IVC SCH ×2 (04:22→13:55)
[2021-07-23 04:34] LABS: Calcium 8.5 mg/dL (8.6-10.3); Magnesium 1.4 mg/dL (1.6-2.6); Potassium 4.6 mEq/L (3.5-5.1)
[2021-07-23] MEDS ORDERED: Magnesium Sulfate 1 GM/102 ML PIGGYBACK IVPB ONE (07:54)
[2021-07-23] MEDS ORDERED: Ringers Solution, Lactated 1,000 ML IVC SCH ×2 (09:00→09:01)
[2021-07-23] MEDS: MetroNIDAZOLE 500 MG/100 ML 500 MG/100 ML BAG IVPB SCH ×2 (09:00→16:54)
[2021-07-23] MEDS: Nicotine 14 MG PATCH.TD24 TD SCH (09:06)
[2021-07-23] MEDS: NIFEdipine XL (24 HR) 30 MG TAB.ER.24 PO SCH (09:07)
[2021-07-23] MEDS: carvediloL 25 MG TABLET PO SCH ×2 (09:08→16:49)
[2021-07-23] MEDS: levETIRAcetam 250 MG TABLET PO SCH (09:08)
[2021-07-23] MEDS: *HR* Heparin 5,000 UNIT/ML VIAL IVP PRN (14:02)
[2021-07-23] MEDS: 0.9 % Sodium Chloride 1,000 ML IVC SCH (15:34)
[2021-07-23] MEDS: *HR* HYDROmorphone (PF) 1 MG/ML SYRINGE IVP PRN ×2 (15:53→19:58)
[2021-07-23] MEDS: levETIRAcetam 500 MG/5 ML UDC GTUBE SCH (21:27)
[2021-07-23] MEDS: *HR* Heparin 5,000 UNIT/ML VIAL SQ SCH (21:28)
[2021-07-23 23:58] LABS: Bacteria,Urine Few per hpf (None-Few); Bilirubin,Urine Negative (Negative); Blood,Urine Trace (Negative); Clarity,Urine Clear (Clear); Color,Urine Light-Yellow (Yellow); Glucose,Urine (UA) Normal (Normal); Ketones,Urine Negative (Negative); Leukocyte Esterase,Urine Negative (Negative); Mucus,Urine Few per lpf (None-Few); Nitrite,Urine Negative (Negative); Protein,Urine 100 mg/dL (Neg-Trace); RBC,Urine 0-3 per hpf (0-3); Specific Gravity,Urine 1.015 (1.010-1.025); Urobilinogen,Urine Normal (Normal); WBC,Urine 0-3 per hpf (0-3)
[2021-07-24 00:05] LABS: Sodium, Urine 45.8 mEq/L
[2021-07-24] MEDS: *HR* HYDROmorphone (PF) 1 MG/ML SYRINGE IVP PRN ×5 (00:18→23:44)
[2021-07-24] MEDS: 0.9 % Sodium Chloride 1,000 ML IVC SCH ×3 (01:15→23:43)
[2021-07-24] MEDS: MetroNIDAZOLE 500 MG/100 ML 500 MG/100 ML BAG IVPB SCH ×3 (02:16→18:24)
[2021-07-24 03:08] LABS: Basophils % 0.1 %; Eosinophils # 0.4 K/mcL (0.0-0.6); Eosinophils % 2.7 %; Hematocrit 24.2 % (37.5-50.1); Hemoglobin 7.2 g/dL (12.9-16.9); Immature Granulocytes % 1.8 % (0-4); Lymphocytes % 7.3 %; Mean Corpuscular HGB Conc 29.8 g/dL (31.6-35.5); Mean Corpuscular Hemoglobin 30.3 pg (28.0-33.3); Mean Corpuscular Volume 101.7 fL (83.0-100.0); Mean Platelet Volume 9.3 fL (9.4-12.4); Monocytes # 1.8 K/mcL (0.0-1.3); Monocytes % 12.8 %; Neutrophils # 10.5 K/mcL (1.6-8.9); Platelet Count 278 K/mcL (140-400); Red Blood Count 2.38 M/mcL (4.19-5.50); Red Cell Distribution Width 14.8 % (11.5-14.5); Segmented Neutrophils % 75.3 %; White Blood Count 13.9 K/mcL (4.3-11.1)
[2021-07-24 03:24] LABS: Calcium 8.7 mg/dL (8.6-10.3); Potassium 4.7 mEq/L (3.5-5.1)
[2021-07-24 03:35] LABS: % Iron Saturation 11 % (20-55); Iron 19 mcg/dL (65-175); Transferrin 123 mg/dL (203-362)
[2021-07-24 03:54] LABS: Ferritin > 1500 ng/mL (20-250)
[2021-07-24] MEDS: Cefepime HCl 2,000 MG in 0.9 % Sodium Chloride 10 ML IVP SCH ×2 (05:35→18:24)
[2021-07-24] MEDS: *HR* Heparin 5,000 UNIT/ML VIAL SQ SCH ×3 (05:36→21:06)
[2021-07-24] MEDS: Nicotine 14 MG PATCH.TD24 TD SCH (09:25)
[2021-07-24] MEDS: carvediloL 25 MG TABLET PO SCH ×2 (09:26→18:25)
[2021-07-24] MEDS: NIFEdipine XL (24 HR) 30 MG TAB.ER.24 PO SCH (09:26)
[2021-07-24 09:34] LABS: Magnesium 1.9 mg/dL (1.6-2.6)
[2021-07-24] MEDS: levETIRAcetam 500 MG/5 ML UDC GTUBE SCH (09:34)
[2021-07-24] MEDS: levETIRAcetam 500 MG/5 ML UDC PO SCH ×2 (09:35→21:06)
[2021-07-24] MEDS: Metoclopramide 10 MG/2 ML VIAL IVP SCH ×3 (14:02→23:43)
[2021-07-24 16:24] LABS: Hematocrit 25.3 % (37.5-50.1); Hemoglobin 7.5 g/dL (12.9-16.9)
[2021-07-25 01:52] LABS: Basophils % 0.2 %; Eosinophils # 0.6 K/mcL (0.0-0.6); Eosinophils % 3.4 %; Hemoglobin 7.2 g/dL (12.9-16.9); Immature Granulocytes % 2.4 % (0-4); Lymphocytes # 1.3 K/mcL (0.6-4.6); Lymphocytes % 7.9 %; Mean Corpuscular Hemoglobin 30.3 pg (28.0-33.3); Mean Corpuscular Volume 100.8 fL (83.0-100.0); Monocytes # 2.1 K/mcL (0.0-1.3); Monocytes % 12.4 %; Neutrophils # 12.5 K/mcL (1.6-8.9); Platelet Count 328 K/mcL (140-400); Red Blood Count 2.38 M/mcL (4.19-5.50); Red Cell Distribution Width 14.9 % (11.5-14.5); Segmented Neutrophils % 73.7 %
[2021-07-25 02:00] LABS: Calcium 8.8 mg/dL (8.6-10.3); Potassium 4.1 mEq/L (3.5-5.1)
[2021-07-25] MEDS: MetroNIDAZOLE 500 MG/100 ML 500 MG/100 ML BAG IVPB SCH ×3 (03:16→17:38)
[2021-07-25] MEDS: Metoclopramide 10 MG/2 ML VIAL IVP SCH ×3 (06:48→18:58)
[2021-07-25] MEDS: *HR* Heparin 5,000 UNIT/ML VIAL SQ SCH ×3 (06:49→21:37)
[2021-07-25] MEDS: *HR* HYDROmorphone (PF) 1 MG/ML SYRINGE IVP PRN ×2 (08:44→18:53)
[2021-07-25] MEDS: 0.9 % Sodium Chloride 1,000 ML IVC SCH (10:44)
[2021-07-25] MEDS: NIFEdipine XL (24 HR) 30 MG TAB.ER.24 PO SCH (10:45)
[2021-07-25] MEDS: carvediloL 25 MG TABLET PO SCH ×2 (10:45→17:38)
[2021-07-25] MEDS: Cefepime HCl 2,000 MG in 0.9 % Sodium Chloride 10 ML IVP SCH ×2 (10:46→18:52)
[2021-07-25] MEDS: levETIRAcetam 500 MG/5 ML UDC PO SCH ×2 (10:46→21:36)
[2021-07-25] MEDS: Nicotine 14 MG PATCH.TD24 TD SCH (10:46)
[2021-07-26] MEDS: *HR* HYDROmorphone (PF) 1 MG/ML SYRINGE IVP PRN ×4 (00:19→23:30)
[2021-07-26] MEDS: Metoclopramide 10 MG/2 ML VIAL IVP SCH ×5 (00:19→23:29)
[2021-07-26] MEDS: 0.9 % Sodium Chloride 1,000 ML IVC SCH ×3 (00:27→19:52)
[2021-07-26] MEDS: MetroNIDAZOLE 500 MG/100 ML 500 MG/100 ML BAG IVPB SCH ×3 (02:32→18:13)
[2021-07-26 05:00] LABS: Basophils # 0.1 K/mcL (0.0-0.2); Basophils % 0.5 %; Eosinophils # 0.8 K/mcL (0.0-0.6); Eosinophils % 4.8 %; Hematocrit 23.7 % (37.5-50.1); Hemoglobin 7.1 g/dL (12.9-16.9); Immature Granulocytes % 3.7 % (0-4); Lymphocytes # 2.2 K/mcL (0.6-4.6); Mean Platelet Volume 8.9 fL (9.4-12.4); Monocytes # 2.3 K/mcL (0.0-1.3); Monocytes % 13.5 %; Neutrophils # 11.1 K/mcL (1.6-8.9); Nucleated Red Blood Cells 0.2 /100 WBC (0); Platelet Count 298 K/mcL (140-400); Red Blood Count 2.37 M/mcL (4.19-5.50); Red Cell Distribution Width 14.9 % (11.5-14.5); Segmented Neutrophils % 64.5 %; White Blood Count 17.2 K/mcL (4.3-11.1)
[2021-07-26 05:12] LABS: Calcium 8.4 mg/dL (8.6-10.3); Potassium 3.6 mEq/L (3.5-5.1)
[2021-07-26] MEDS: Cefepime HCl 2,000 MG in 0.9 % Sodium Chloride 10 ML IVP SCH ×2 (06:18→19:21)
[2021-07-26] MEDS: *HR* Heparin 5,000 UNIT/ML VIAL SQ SCH ×3 (06:18→21:01)
[2021-07-26] MEDS: carvediloL 25 MG TABLET PO SCH ×2 (08:05→18:13)
[2021-07-26] MEDS: NIFEdipine XL (24 HR) 30 MG TAB.ER.24 PO SCH (08:05)
[2021-07-26] MEDS: levETIRAcetam 500 MG/5 ML UDC PO SCH ×2 (08:05→19:51)
[2021-07-26] MEDS: Nicotine 14 MG PATCH.TD24 TD SCH (10:38)
[2021-07-26] MEDS: *HR* OxyCODONE Immed Rel 5 MG TABLET PO PRN (16:57)
[2021-07-26] MEDS: traZODone 50 MG TABLET PO PRN (21:01)
[2021-07-26] MEDS: *HR* HYDROcodone/Acet 5/325 mg TABLET PO PRN (21:01)
[2021-07-27] MEDS: MetroNIDAZOLE 500 MG/100 ML 500 MG/100 ML BAG IVPB SCH ×3 (03:04→17:29)
[2021-07-27] MEDS: *HR* HYDROcodone/Acet 5/325 mg TABLET PO PRN (03:54)
[2021-07-27] MEDS: Cefepime HCl 2,000 MG in 0.9 % Sodium Chloride 10 ML IVP SCH ×2 (06:02→19:43)
[2021-07-27] MEDS: Metoclopramide 10 MG/2 ML VIAL IVP SCH ×3 (06:02→17:29)
[2021-07-27] MEDS: *HR* Heparin 5,000 UNIT/ML VIAL SQ SCH ×4 (06:02→22:12)
[2021-07-27] MEDS: Nicotine 14 MG PATCH.TD24 TD SCH (08:06)
[2021-07-27] MEDS: carvediloL 25 MG TABLET PO SCH ×2 (08:07→17:29)
[2021-07-27] MEDS: NIFEdipine XL (24 HR) 30 MG TAB.ER.24 PO SCH (08:07)
[2021-07-27] MEDS: levETIRAcetam 500 MG/5 ML UDC PO SCH ×2 (08:08→19:44)
[2021-07-27 09:00] LABS: Calcium 8.3 mg/dL (8.6-10.3); Potassium 3.6 mEq/L (3.5-5.1)
[2021-07-27] MEDS: 0.9 % Sodium Chloride 1,000 ML IVC SCH ×2 (13:04→16:22)
[2021-07-27] MEDS: *HR* OxyCODONE Immed Rel 5 MG TABLET PO PRN (13:11)
[2021-07-28] MEDS: Metoclopramide 10 MG/2 ML VIAL IVP SCH ×5 (00:10→23:31)
[2021-07-28] MEDS: MetroNIDAZOLE 500 MG/100 ML 500 MG/100 ML BAG IVPB SCH (02:02)
[2021-07-28 03:53] LABS: Hematocrit 23.1 % (37.5-50.1); Hemoglobin 6.8 g/dL (12.9-16.9); Mean Corpuscular HGB Conc 29.4 g/dL (31.6-35.5); Mean Corpuscular Hemoglobin 29.6 pg (28.0-33.3); Mean Corpuscular Volume 100.4 fL (83.0-100.0); Nucleated Red Blood Cells 0.4 /100 WBC (0); Platelet Count 290 K/mcL (140-400); Red Cell Distribution Width 14.9 % (11.5-14.5); White Blood Count 17.1 K/mcL (4.3-11.1)
[2021-07-28 04:13] LABS: Calcium 8.2 mg/dL (8.6-10.3); Potassium 3.1 mEq/L (3.5-5.1)
[2021-07-28 04:19] LABS: Anisocytosis 1+ (Not Present); Lymphocytes # 1.4 K/mcL (0.6-4.6); Monocytes # 1.7 K/mcL (0.0-1.3); Neutrophils # 12.7 K/mcL (1.6-8.9); Platelet Estimate Normal (Normal)
[2021-07-28] MEDS: 0.9 % Sodium Chloride 1,000 ML IVC SCH ×2 (04:23→07:11)
[2021-07-28] MEDS: *HR* Heparin 5,000 UNIT/ML VIAL SQ SCH ×3 (05:47→22:28)
[2021-07-28] MEDS: carvediloL 25 MG TABLET PO SCH ×2 (08:13→17:00)
[2021-07-28] MEDS: levETIRAcetam 500 MG/5 ML UDC PO SCH ×2 (08:16→19:39)
[2021-07-28] MEDS: Nicotine 14 MG PATCH.TD24 TD SCH (08:19)
[2021-07-28] MEDS: NIFEdipine XL (24 HR) 30 MG TAB.ER.24 PO SCH (08:39)
[2021-07-28] MEDS: Cefepime HCl 2,000 MG in 0.9 % Sodium Chloride 10 ML IVP SCH ×2 (09:04→19:39)
[2021-07-28] MEDS ORDERED: Magnesium Sulfate 1 GM/102 ML PIGGYBACK IVPB ONE (11:04)
[2021-07-28] MEDS ORDERED: 0.9 % Sodium Chloride 250 ML ONE (14:51)
[2021-07-28] MEDS: *HR* OxyCODONE Immed Rel 5 MG TABLET PO PRN (14:53)
[2021-07-28 23:13] LABS: Hematocrit 26.4 % (37.5-50.1); Hemoglobin 7.9 g/dL (12.9-16.9); Mean Corpuscular HGB Conc 29.9 g/dL (31.6-35.5); Mean Corpuscular Hemoglobin 30.2 pg (28.0-33.3); Mean Corpuscular Volume 100.8 fL (83.0-100.0); Mean Platelet Volume 10.1 fL (9.4-12.4); Platelet Count 319 K/mcL (140-400); Red Blood Count 2.62 M/mcL (4.19-5.50); Red Cell Distribution Width 15.5 % (11.5-14.5); White Blood Count 22.3 K/mcL (4.3-11.1)
[2021-07-29] MEDS: traZODone 50 MG TABLET PO PRN (01:55)
[2021-07-29] MEDS: *HR* OxyCODONE Immed Rel 5 MG TABLET PO PRN ×3 (01:56→21:11)
[2021-07-29] MEDS: Metoclopramide 10 MG/2 ML VIAL IVP SCH ×3 (05:37→17:43)
[2021-07-29] MEDS: *HR* Heparin 5,000 UNIT/ML VIAL SQ SCH ×2 (05:37→15:45)
[2021-07-29 07:02] LABS: Hematocrit 25.4 % (37.5-50.1); Hemoglobin 7.8 g/dL (12.9-16.9); Mean Corpuscular HGB Conc 30.7 g/dL (31.6-35.5); Mean Corpuscular Volume 97.7 fL (83.0-100.0); Mean Platelet Volume 9.5 fL (9.4-12.4); Nucleated Red Blood Cells 0.4 /100 WBC (0); Platelet Count 301 K/mcL (140-400); Red Cell Distribution Width 15.6 % (11.5-14.5); White Blood Count 18.4 K/mcL (4.3-11.1)
[2021-07-29 07:22] LABS: Potassium 3.1 mEq/L (3.5-5.1)
[2021-07-29] MEDS: Cefepime HCl 2,000 MG in 0.9 % Sodium Chloride 10 ML IVP SCH (07:54)
[2021-07-29] MEDS: NIFEdipine XL (24 HR) 30 MG TAB.ER.24 PO SCH (07:55)
[2021-07-29] MEDS: carvediloL 25 MG TABLET PO SCH ×2 (07:56→15:46)
[2021-07-29] MEDS: Nicotine 14 MG PATCH.TD24 TD SCH (07:58)
[2021-07-29] MEDS: levETIRAcetam 500 MG/5 ML UDC PO SCH ×2 (08:00→21:09)
[2021-07-29 08:07] LABS: Eosinophils # 0.4 K/mcL (0.0-0.6); Lymphocytes # 2.6 K/mcL (0.6-4.6); Monocytes # 1.5 K/mcL (0.0-1.3); Platelet Estimate Normal (Normal)
[2021-07-29 08:08] LABS: Anisocytosis 1+ (Not Present)
[2021-07-29 10:33] LABS: Magnesium 1.3 mg/dL (1.6-2.6)
[2021-07-29] MEDS ORDERED: Apixaban 5 MG TABLET PO SCH (21:00)
[2021-07-30] MEDS: Metoclopramide 10 MG/2 ML VIAL IVP SCH ×3 (00:03→09:59)
[2021-07-30 00:46] VITALS: O2SAT 93
[2021-07-30 03:27] LABS: Hematocrit 26.1 % (37.5-50.1); Hemoglobin 7.9 g/dL (12.9-16.9); Mean Corpuscular HGB Conc 30.3 g/dL (31.6-35.5); Mean Corpuscular Hemoglobin 29.8 pg (28.0-33.3); Mean Corpuscular Volume 98.5 fL (83.0-100.0); Mean Platelet Volume 9.3 fL (9.4-12.4); Nucleated Red Blood Cells 0.5 /100 WBC (0); Platelet Count 297 K/mcL (140-400); Red Blood Count 2.65 M/mcL (4.19-5.50); Red Cell Distribution Width 15.5 % (11.5-14.5); White Blood Count 17.8 K/mcL (4.3-11.1)
[2021-07-30 03:47] LABS: Calcium 7.9 mg/dL (8.6-10.3); Potassium 3.4 mEq/L (3.5-5.1)
[2021-07-30 04:16] VITALS: BP 121/60; PULSE 89; TEMP 98.3
[2021-07-30 04:32] LABS: Eosinophils # 0.7 K/mcL (0.0-0.6); Lymphocytes # 3.6 K/mcL (0.6-4.6); Monocytes # 2.1 K/mcL (0.0-1.3)
[2021-07-30 04:33] LABS: Hypochromasia Present (Not Present); Platelet Estimate Normal (Normal)
[2021-07-30] MEDS: NIFEdipine XL (24 HR) 30 MG TAB.ER.24 PO SCH (09:59)
[2021-07-30] MEDS: Nicotine 14 MG PATCH.TD24 TD SCH (09:59)
[2021-07-30] MEDS: carvediloL 25 MG TABLET PO SCH (09:59)
[2021-07-30] MEDS: levETIRAcetam 500 MG/5 ML UDC PO SCH (09:59)
[2021-07-30] MEDS ORDERED: predniSONE 20 MG TABLET PO SCH (11:00)
== END 2021-07-30 12:54 | disposition home health service (06) | DRG 720 ==
LOC: 2NNU 00:52 → EMEROOARM 00:52 → SUATTDRO 05:58 → 2NNU 07:48 → SUATTDRO 07:48 → 2NENU 07-29 00:17
PROVIDERS: ADMIT Internal Medicine; ATTEND Internal Medicine

== ENCOUNTER 2021-08-02 17:20 | Inpatient (IN) ==
[2021-08-02] MEDS ORDERED: Ipratropium/Albuterol Neb 3 ML IH ONE (18:24)
[2021-08-02 18:40] LABS: Hematocrit 27.2 % (37.5-50.1); Mean Corpuscular HGB Conc 29.4 g/dL (31.6-35.5); Mean Corpuscular Hemoglobin 29.6 pg (28.0-33.3); Mean Corpuscular Volume 100.7 fL (83.0-100.0); Mean Platelet Volume 9.9 fL (9.4-12.4); Nucleated Red Blood Cells 0.2 /100 WBC (0); Platelet Count 464 K/mcL (140-400); Red Cell Distribution Width 14.9 % (11.5-14.5); White Blood Count 25.2 K/mcL (4.3-11.1)
[2021-08-02 19:02] LABS: VBG HCO3 28 mEq/L (21-27); VBG PCO2 67 mmHg (41-51); VBG PH 7.23 pH Units (7.32-7.42); VBG PO2 149 mmHg (25-50)
[2021-08-02 19:03] LABS: Eosinophils # 1.5 K/mcL (0.0-0.6); Monocytes # 1.5 K/mcL (0.0-1.3); Neutrophils # 20.2 K/mcL (1.6-8.9); Platelet Estimate Increased (Normal)
[2021-08-02 19:07] LABS: Alanine Aminotransferase 7 Units/L (7-52); Albumin 2.6 g/dL (3.5-5.7); Albumin/Globulin Ratio 0.5 (1.1-2.2); Alkaline Phosphatase 74 Units/L (34-104); Aspartate Amino Transferase 13 Units/L (13-39); BUN/Creatinine Ratio 10 (6-26); Bilirubin,Direct 0.1 mg/dL (0.0-0.2); Bilirubin,Indirect 0.1 mg/dL (0.0-1.0); Bilirubin,Total 0.2 mg/dL (0.3-1.0); Blood Urea Nitrogen 40 mg/dL (6-20); Calcium 8.7 mg/dL (8.6-10.3); Carbon Dioxide 26 mEq/L (23-29); Chloride 100 mEq/L (98-107); Globulin 5.3 g/dL (2.4-3.5); Glucose 135 mg/dL (70-105); Osmolality,Calculated 296 (280-300); Potassium 4.3 mEq/L (3.5-5.1); Sodium 137 mEq/L (136-145); Total Protein 7.9 g/dL (6.4-8.9); Troponin I < 0.03 ng/mL (< 0.04); eGFR For African Americans 20 (> 60); eGFR For Non-African Americans 16 (> 60)
[2021-08-02 19:08] LABS: INR 1.4; Prothrombin Time 15.1 Seconds (9.4-12.1)
[2021-08-02 19:10] LABS: Activated Partial Thrombo Time 26.8 Seconds (26.0-36.0)
[2021-08-02] MEDS ORDERED: Vancomycin 2,000 MG/520 ML IV.SOLN IVPB ONE (19:29)
[2021-08-02] MEDS ORDERED: Cefepime HCl 1,000 MG in 0.9 % Sodium Chloride Mini Bag 100 ML IVPB STA (19:30)
[2021-08-02 20:41] LABS: Adenovirus Not Detected (Not Detect); Bordetella Pertussis Not Detected (Not Detect); Chlamydophila pneumoniae Not Detected (Not Detect); Coronavirus 229E Not Detected (Not Detect); Coronavirus HKU1 Not Detected (Not Detect); Coronavirus NL63 Not Detected (Not Detect); Coronavirus OC43 Not Detected (Not Detect); Human Metapneumovirus Not Detected (Not Detect); Human Rhinovirus/Enterovirus Not Detected (Not Detect); Influenza A Subtype 2009 H1 Not Detected (Not Detect); Influenza B Not Detected (Not Detect); Mycoplasma pneumoniae Not Detected (Not Detect); Parainfluenza Virus 1 Not Detected (Not Detect); Parainfluenza Virus 2 Not Detected (Not Detect); Parainfluenza Virus 3 Not Detected (Not Detect); Parainfluenza Virus 4 Not Detected (Not Detect); Respiratory Syncytial Virus Not Detected (Not Detect); SARS-CoV-2 Not Detected (Not Detect)
[2021-08-02] MEDS ORDERED: 0.9 % Sodium Chloride 250 ML IVC ONE (20:42)
[2021-08-02] MEDS ORDERED: 0.9 % Sodium Chloride 500 ML IVC ONE (21:13)
[2021-08-02 21:56] LABS: Bilirubin,Urine Negative (Negative); Blood,Urine Small (Negative); Clarity,Urine Clear (Clear); Color,Urine Light-Yellow (Yellow); Glucose,Urine (UA) 150 mg/dL (Normal); Ketones,Urine Negative (Negative); Leukocyte Esterase,Urine Negative (Negative); Nitrite,Urine Negative (Negative); Protein,Urine 200 mg/dL (Neg-Trace); RBC,Urine 0-3 per hpf (0-3); Specific Gravity,Urine 1.015 (1.010-1.025); Urobilinogen,Urine Normal (Normal); WBC,Urine 0-3 per hpf (0-3)
[2021-08-02] MEDS ORDERED: Melatonin 3 MG TABLET PO PRN (22:49)
[2021-08-02] MEDS ORDERED: Ondansetron ODT 4 MG TAB.RAPDIS SL PRN (22:49)
[2021-08-02] MEDS ORDERED: Naloxone 0.4 MG/ML INJ IVP PRN (22:49)
[2021-08-03 00:55] LABS: VBG HCO3 24 mEq/L (21-27); VBG PCO2 48 mmHg (41-51); VBG PH 7.31 pH Units (7.32-7.42); VBG PO2 184 mmHg (25-50)
[2021-08-03] MEDS ORDERED: Acetaminophen IV 500 MG/50 ML BAG IVPB ONE (01:39)
[2021-08-03] MEDS ORDERED: polyethylene glycoL 3350 17 GM POWD.PACK PO PRN (01:40)
[2021-08-03] MEDS ORDERED: *HR* LORazepam 2 MG/ML VIAL IM STA (01:40)
[2021-08-03] MEDS ORDERED: Methylnaltrexone 12 MG/0.6 ML SYRINGE SQ ONE (02:03)
[2021-08-03] MEDS ORDERED: methylPREDNISolone 125 MG/2 ML VIAL IVP ONE (02:05)
[2021-08-03] MEDS ORDERED: Pantoprazole 40 MG VIAL IVP ONE (02:05)
[2021-08-03] MEDS ORDERED: Perflutren Lipid Microsphere 1.3 ML in 0.9 % Sodium Chloride 8.7 ML IVP PRN (02:28)
[2021-08-03] MEDS ORDERED: Vancomycin 1,750 MG in 0.9 % Sodium Chloride 250 ML IVPB SCH (03:00)
[2021-08-03] MEDS ORDERED: 0.9 % Sodium Chloride 1,000 ML IVC SCH (03:15)
[2021-08-03] MEDS: Budesonide/Formoterol 80/4.5 1 PUFF INH IH SCH ×3 (03:52→20:31)
[2021-08-03 04:05] LABS: ABG Base Excess -3 mEq/L (-2 to 3); ABG HCO3 24 mEq/L (21-27); ABG Oxygen Saturation 87 % (95-98); ABG PCO2 51 mmHg (35-45); ABG PH 7.28 pH Units (7.32-7.45); ABG PO2 61 mmHg (85-104); ABG TCO2 25 mEq/L (20-26)
[2021-08-03] MEDS: Ipratropium/Albuterol Neb 3 ML IH SCH ×6 (04:09→23:11)
[2021-08-03] MEDS ORDERED: Dextrose Gel 15 GM/37.5 ML TUBE PO PRN ×2 (06:24)
[2021-08-03] MEDS ORDERED: *HR* Dextrose 50 % in Water (Syg) 50 ML SYRINGE IVP PRN (06:24)
[2021-08-03] MEDS ORDERED: D5% in Water 1,000 ML IVC PRN (06:24)
[2021-08-03 07:13] LABS: Thyroid Stimulating Hormone 1.749 mcIU/mL (0.340-5.600)
[2021-08-03 07:54] LABS: Calcium 8.4 mg/dL (8.6-10.3); Magnesium 1.8 mg/dL (1.6-2.6); Potassium 4.9 mEq/L (3.5-5.1)
[2021-08-03] MEDS: Cefepime HCl 1,000 MG in 0.9 % Sodium Chloride 10 ML IVP SCH ×2 (07:54→22:07)
[2021-08-03] MEDS: MetroNIDAZOLE 500 MG/100 ML 500 MG/100 ML BAG IVPB SCH ×3 (07:55→23:23)
[2021-08-03 09:26] LABS: Budding Yeast,Urine Few per hpf (None Seen); Mucus,Urine Few per lpf (None-Few)
[2021-08-03] MEDS: 0.9 % Sodium Chloride 1,000 ML IVC SCH ×2 (10:16→15:12)
[2021-08-03 10:52] LABS: Hematocrit 24.4 % (37.5-50.1); Hemoglobin 7.3 g/dL (12.9-16.9); Mean Corpuscular HGB Conc 29.9 g/dL (31.6-35.5); Mean Corpuscular Hemoglobin 29.2 pg (28.0-33.3); Mean Corpuscular Volume 97.6 fL (83.0-100.0); Mean Platelet Volume 9.5 fL (9.4-12.4); Platelet Count 369 K/mcL (140-400); Red Cell Distribution Width 14.8 % (11.5-14.5); White Blood Count 16.1 K/mcL (4.3-11.1)
[2021-08-03 12:17] LABS: ABG Base Excess -4 mEq/L (-2 to 3); ABG HCO3 23 mEq/L (21-27); ABG Oxygen Saturation 91 % (95-98); ABG PCO2 49 mmHg (35-45); ABG PH 7.27 pH Units (7.32-7.45); ABG PO2 69 mmHg (85-104); ABG TCO2 24 mEq/L (20-26); Blood Gas VT 450 cc
[2021-08-03] MEDS: Insulin LISPRO 300 UNITS/3 ML VIAL SUBQ SCH ×2 (14:53→22:08)
[2021-08-03] MEDS: *HR* LORazepam Oral Conc 2 MG/ML SL PRN ×2 (17:04→23:21)
[2021-08-03] MEDS ORDERED: Mag Hydrox/Al Hydrox/Simeth 30 ML UDC PO PRN (17:09)
[2021-08-04] MEDS: Insulin LISPRO 300 UNITS/3 ML VIAL SUBQ SCH ×2 (02:23→06:34)
[2021-08-04] MEDS: Ipratropium/Albuterol Neb 3 ML IH SCH ×2 (04:01→04:22)
[2021-08-04] MEDS: 0.9 % Sodium Chloride 1,000 ML IVC SCH ×2 (04:20→08:51)
[2021-08-04 04:24] LABS: Complement C3 151 mg/dL (87-200)
[2021-08-04 04:25] LABS: % Iron Saturation 33 % (20-55); Creatine Kinase < 10 Units/L (30-223); Iron 52 mcg/dL (65-175); Phosphorous 7.2 mg/dL (2.7-4.5); Transferrin 111 mg/dL (203-362); Uric Acid 9.2 mg/dL (2.3-7.6)
[2021-08-04 04:26] LABS: Rheumatoid Factor 11 IU/mL (Less than 14)
[2021-08-04 04:48] LABS: Folate 4.8 ng/mL (3.0-16.0)
[2021-08-04] MEDS ORDERED: Ipratropium/Albuterol Neb 3 ML IH PRN (05:05)
[2021-08-04 05:39] LABS: Hepatitis B Surface Antigen Nonreactive (Nonreactive)
[2021-08-04 06:08] LABS: Hepatitis B Core IgM Nonreactive (Nonreactive)
[2021-08-04 06:11] LABS: Hepatitis A Antibody IgM Nonreactive (Nonreactive)
[2021-08-04 07:39] LABS: Hepatitis C Virus Antibody Reactive (Nonreactive)
[2021-08-04] MEDS ORDERED: Haloperidol Lactate 5 MG/ML VIAL IVP PRN (10:33)
[2021-08-04] MEDS: MetroNIDAZOLE 500 MG/100 ML 500 MG/100 ML BAG IVPB SCH (11:44)
[2021-08-04] MEDS: Cefepime HCl 1,000 MG in 0.9 % Sodium Chloride 10 ML IVP SCH (11:44)
[2021-08-04] MEDS: *HR* HYDROmorphone (PF) 1 MG/ML SYRINGE IVP PRN (14:35)
[2021-08-04] MEDS: *HR* LORazepam 2 MG/ML VIAL IVP PRN ×2 (15:14→20:48)
[2021-08-05] MEDS ORDERED: Saline Nasal Spray 44 ML BOTTLE NS PRN (00:58)
[2021-08-05] MEDS: *HR* LORazepam 2 MG/ML VIAL IVP PRN ×3 (01:29→22:21)
[2021-08-05] MEDS: *HR* HYDROmorphone (PF) 1 MG/ML SYRINGE IVP PRN ×4 (01:34→19:54)
[2021-08-05] MEDS ORDERED: Atropine 1% Opth Drops 100 DROP/5 ML BOTTLE SL PRN (09:40)
[2021-08-05] MEDS ORDERED: Haloperidol Oral Conc 10 MG/5 ML UDC PO PRN (09:45)
[2021-08-05] MEDS ORDERED: Scopolamine Patch 1.5 MG PATCH.TD72 TD SCH (11:15)
[2021-08-05] MEDS: Haloperidol Lactate 5 MG/ML VIAL IVP PRN ×2 (11:25→15:27)
[2021-08-05] MEDS ORDERED: Simethicone 40 MG/0.6 ML MLS PO PRN (18:48)
[2021-08-06] MEDS: *HR* LORazepam 2 MG/ML VIAL IVP PRN ×5 (01:48→21:46)
[2021-08-06] MEDS: *HR* HYDROmorphone (PF) 1 MG/ML SYRINGE IVP PRN ×5 (04:45→19:57)
[2021-08-06 07:13] LABS: Kappa Qnt Free Light Chains 298.54 mg/L (3.30-19.40); Lambda Qnt Free Light Chains 210.3 mg/L (5.71-26.30)
[2021-08-06 07:16] LABS: Hepatitis B Core Ab Total NEGATIVE (Negative)
[2021-08-06] MEDS ORDERED: *HR* HYDROmorphone 2 MG/ML SYRINGE IVP ONE (13:03)
[2021-08-06] MEDS: *HR* HYDROmorphone (PF) 1 MG/ML SYRINGE IVP SCH ×3 (15:12→21:34)
[2021-08-06] MEDS: Atropine Sulfate 1% 40 DROP/2 ML BOTTLE SL PRN ×2 (15:59→20:00)
[2021-08-06 23:58] LABS: Alpha 2 Globulin (PEP) 1.35 g/dL (0.48-1.05); Beta Globulin (PEP) 0.93 g/dL (0.48-1.10)
[2021-08-07] MEDS: Atropine Sulfate 1% 40 DROP/2 ML BOTTLE SL PRN ×2 (00:07→05:58)
[2021-08-07] MEDS: *HR* HYDROmorphone (PF) 1 MG/ML SYRINGE IVP SCH ×4 (00:59→08:53)
[2021-08-07] MEDS: *HR* HYDROmorphone (PF) 1 MG/ML SYRINGE IVP PRN (01:00)
[2021-08-07 08:01] VITALS: BP 92/60; PULSE 107; TEMP 98.7; O2SAT 61
[2021-08-07] MEDS: *HR* LORazepam 2 MG/ML VIAL IVP PRN (08:53)
[2021-08-07] MEDS ORDERED: *HR* HYDROmorphone PCA *PREMADE* 20 MG/1MG/ML (20mL) PCA VIAL IVC SCH (09:30)
[2021-08-07 15:01] LABS: IFE Reflexed NOT DONE
[2021-08-07 15:03] LABS: GBM IgG Multiplex Bead Assay 0 AU/mL (0-19); Glomerular Basement Memb IgG NEGATIVE (Negative)
== END 2021-08-07 09:35 | disposition expired | DRG 720 ==
LOC: 2NNU 17:20 → EMEROOARM 17:20 → SUATTDRO 22:19 → 2NNU 22:45 → SUATTDRO 08-03 18:51 → 2ANU 08-04 13:17
PROVIDERS: ADMIT Internal Medicine; ATTEND Family Medicine